=== PATIENT | female | born 1980 | race Caucasian/White ===

== ENCOUNTER 2017-08-26 10:51 | Emergency (ER) | payer BC, MEDICAID, OTHER ==
[2017-08-26 11:00] VITALS: RESP 16; TEMP 97.7
[2017-08-26 11:51] LABS: SQUAMOUS EPITHIAL 4 /hpf (0-5); URINE BILIRUBIN NEGATIVE (NEGATIVE); URINE BLOOD NEGATIVE (NEGATIVE); URINE CLARITY SLIGHTY-CLOUDY (Clear); URINE COLOR YELLOW (YELLOW); URINE GLUCOSE (UA) NEG (Normal); URINE LEUKOCYTE ESTERASE NEG Leu/uL (Negative); URINE NITRATE NEGATIVE (NEGATIVE); URINE PROTEIN NEGATIVE (NEGATIVE); URINE UROBILINOGEN 0.2-1.0 mg/dL (0.2-1.0)
[2017-08-26 12:01] LABS: BASO # 0.1 K/uL (0.0-0.2); BASO % 0.6 % (0.0-2.0); EOS # 0.2 K/uL (0.0-0.7); EOS % 2.6 % (0.0-4.0); HEMOGLOBIN 12.5 g/dL (12.0-16.0); LYMPH # 2.2 K/uL (1.0-4.3); LYMPH % 23.4 % (20.0-40.0); MEAN CELL VOLUME 80.9 fl (81.0-99.0); MEAN CORPUSCULAR HEMOGLOBIN 27.2 pg (27.0-31.0); MEAN CORPUSCULAR HGB CONC 33.6 g/dL (33.0-37.0); MONO # 0.6 K/uL (0.0-0.8); MONO % 6.9 % (0.0-10.0); NEUT # 6.2 K/uL (1.8-7.0); NEUT % 66.5 % (50.0-75.0); RBC 4.6 Mil/uL (3.80-5.20); RED CELL DISTRIBUTION WIDTH 13.3 % (11.5-14.5); WHITE BLOOD COUNT 9.3 K/uL (4.8-10.8)
[2017-08-26 12:07] LABS: ALB/GLOB RATIO 1.3 (1.0-2.1); ALBUMIN 4.2 g/dL (3.5-5.0); ALT/SGPT 35 U/L (9-52); AST/SGOT 21 U/L (14-36); BLOOD UREA NITROGEN 17 mg/dl (7-17); CALCIUM 9.3 mg/dL (8.4-10.2); GFR AFRICAN-AMERICAN > 60; GFR NON-AFRICAN AMERICAN > 60; LIPASE 92 U/L (23-300)
--- NOTE | 2017-08-26 12:10 | RAD ---
HISTORY: chest pain COMPARISON: No prior. TECHNIQUE: Chest PA and lateral FINDINGS: LUNGS: No active pulmonary disease. PLEURA: No significant pleural effusion identified. No pneumothorax apparent. CARDIOVASCULAR: Normal. OSSEOUS STRUCTURES: No significant abnormalities. VISUALIZED UPPER ABDOMEN: Normal. OTHER FINDINGS: None. IMPRESSION: No active disease.
--- NOTE | 2017-08-26 15:06 | ED PDOC ---
HPI: Chest Pain Time Seen by Provider: 08/26/17 11:11 Chief Complaint (Nursing): Chest Pain Chief Complaint (Provider): chest pain History Per: Patient History/Exam Limitations: no limitations Additional Complaint(s): 37yo F in ED for eval of chest pain to left side lasting about 10-20 mins pressure sensation radiating to left arm with mild nausea without vomiting and sweating.PT admits this occurred once in the past about 6 months ago. pt states she has been feeling like this since 2days. negative for epigastric pain and radiation of pain to back, vision changes dizziness MCQUEEN. phmx:HTN Past Medical History Reviewed: Historical Data, Nursing Documentation, Vital Signs Vital Signs: Last Vital Signs Temp 97.7 F 08/26/17 10:58 Pulse 73 08/26/17 11:10 Resp 16 08/26/17 11:10 BP 143/90 08/26/17 11:10 Pulse Ox 100 08/26/17 15:10 - Medical History PMH: HTN, Hypothyroidism - Family History Family History: States: Unknown Family Hx - Immunization History Hx Influenza Vaccination: No Hx Pneumococcal Vaccination: No - Home Medications Home Medications: Ambulatory Orders Medication Instructions Recorded Levothyroxine Sodium [Synthroid] 135 mcg PO DAILY 08/27/14 Tobramycin 0.3% [Tobrex 0.3% Ophth 2 drop OP QID #1 bottle 08/27/14 Soln] - Allergies Allergies/Adverse Reactions: Allergies Allergy/AdvReac Type Severity Reaction Status Date / Time seasonal allergies Allergy Uncoded 08/27/14 08:02 LILLIE Risk Score for UA/NSTEMI - LILLIE Risk Score Age > 64: NO 3 or more CAD Risk Factors: NO Known CAD (Stenosis greater than 50%): NO Aspirin use in past 7 days: NO Severe Angina: NO EKG ST changes greater than 0.5mm: NO Positive Cardiac Marker: NO LILLIE Score: 0 Risk %: 5% Curb-65 Severity Score - CURB-65 Severity Score Confusion: No Bun >19mg/dl (>7mmol/L): No Respiratory Rate greater than/equal to 30: No Systolic BP <90 or Diastolic BP less than/equal 60mmHg: No Age >64: No Curb-65 Score: 0 Percentage 30-day mortality: 0.6% Wells Criteria for PE - Wells Criteria for Pulmonary Embolism Clinical Signs and Symptoms of DVT: No P.E is #1 Diagnosis, or Equally Likely: No Heart Rate >100: No Immobilization at least 3 days;Surgery previous 4 weeks: No Previous, objectively diagnosed PE or DVT: No Hemoptysis: No Malignancy w/treatment within 6 months, or palliative: No Total Score: 0 Review of Systems ROS Statement: Except As Marked, All Systems Reviewed And Found Negative Constitutional: Negative for: Fever, Chills Cardiovascular: Positive for: Chest Pain. Negative for: Palpitations Respiratory: Negative for: Cough, Shortness of Breath Gastrointestinal: Positive for: Nausea. Negative for: Vomiting Neurological: Positive for: Dizziness Physical Exam - Reviewed Nursing Documentation Reviewed: Yes Vital Signs Reviewed: Yes - Physical Exam Appears: Positive for: Well, Non-toxic, No Acute Distress Skin: Positive for: Normal Color, Warm, DRY Eye Exam: Positive for: EOMI, Normal appearance, PERRL Cardiovascular/Chest: Positive for: Regular Rate, Rhythm Respiratory: Positive for: CNT, Normal Breath Sounds Gastrointestinal/Abdominal: Positive for: Normal Exam, Bowel Sounds, Soft. Negative for: Tenderness Neurologic/Psych: Positive for: Alert, Oriented - Laboratory Results Result Diagrams: 08/26/17 11:45 08/26/17 11:45 - ECG O2 Sat by Pulse Oximetry: 100 - Progress ED Course And Treament: impression: CP Laboratory Results - last 72 hr 08/26/17 08/26/17 08/26/17 11:40 11:45 11:45 WBC 9.3 RBC 4.60 Hgb 12.5 Hct 37.2 MCV 80.9 L MCH 27.2 MCHC 33.6 RDW 13.3 Plt Count 170 MPV 10.0 Neut % (Auto) 66.5 Lymph % (Auto) 23.4 Swisher % (Auto) 6.9 Eos % (Auto) 2.6 Baso % (Auto) 0.6 Neut # 6.2 Lymph # 2.2 Swisher # 0.6 Eos # 0.2 Baso # 0.1 Sodium 141 Potassium 4.4 Chloride 103 Carbon Dioxide 27 Anion Gap 15 BUN 17 Creatinine 0.7 Est GFR ( Amer) > 60 Est GFR (Non-Af Amer) > 60 Random Glucose 95 Calcium 9.3 Total Bilirubin 0.4 AST 21 ALT 35 Alkaline Phosphatase 52 Troponin I < 0.0120 Total Protein 7.5 Albumin 4.2 Globulin 3.3 Albumin/Globulin Ratio 1.3 Lipase 92 Urine Color Yellow Urine Clarity Slighty-cloudy Urine pH 6.0 Ur Specific [place] 1.025 Urine Protein Negative Urine Glucose (UA) Neg Urine Ketones Negative Urine Blood Negative Urine Nitrate Negative Urine Bilirubin Negative Urine Urobilinogen 0.2-1.0 Ur Leukocyte Esterase Neg Urine RBC (Auto) 2 Urine Microscopic WBC < 1 Ur Squamous Epith Cells 4 Medical Decision Making Medical Decision Making: ll labs are WNL will do 2nd Trop. PT offered obs-tele admission but declined pt made aware of benefits but states she is unable to stay due to her children. PADMINI Romano made aware of pt will have pt f.u in office tomorrow. PT stable well appearing. Troponin I < 0.0120 ng/mL (0.00-0.120) 08/26/17 15:20 Disposition - Clinical Impression Clinical Impression: Chest pain - Patient ED Disposition Is Patient to be Admitted: No Counseled Patient/Family Regarding: Studies Performed, Diagnosis, Need For Followup - Disposition Disposition: Routine/Home Disposition Time: 16:13 Condition: STABLE Instructions: Chest Pain (ED) Forms: [facility] ([place])
[2017-08-26 16:40] VITALS: BP 129/90; PULSE 79; O2SAT 97
--- NOTE | 2017-08-27 11:09 | CARD ---
APPROVED REPORT EKG Measurement Heart [id number] <Conclusion> Normal sinus rhythm Normal ECG
== END 2017-08-26 16:47 | disposition home or self-care (01) ==
LOC: H.ER 10:51
DX: R07.89 Other chest pain (principal); I10 Essential (primary) hypertension; E03.9 Hypothyroidism, unspecified

== ENCOUNTER 2017-09-20 22:19 | Emergency (ER) | payer MEDICAID ==
[2017-09-20 22:43] VITALS: BP 143/93; PULSE 72; RESP 16; TEMP 98.2; O2SAT 98
[2017-09-20] MEDS ORDERED: Albuterol-Ipratrop 3 mg / 0.5 (3 ml) UD INH STA (23:13)
--- NOTE | 2017-09-20 23:15 | ED PDOC ---
HPI: General Adult Time Seen by Provider: 09/20/17 23:14 Chief Complaint (Nursing): Cough, Cold, Congestion Chief Complaint (Provider): cough/chest tightness History Per: Patient (37 y/o female here with cough associated with chest tightness. States when she takes deep breath feels constriction. Has been diagnosed with flu 1 week prior but states she has new symptoms. Has h/o bronchitis in past and feels this is similar. Ran out of albuterol medication.) Past Medical History Reviewed: Historical Data, Nursing Documentation, Vital Signs Vital Signs: Last Vital Signs Temp 98.2 F 09/20/17 22:42 Pulse 72 09/20/17 22:42 Resp 16 09/20/17 22:42 BP 143/93 H 09/20/17 22:42 Pulse Ox 98 09/20/17 23:15 - Medical History PMH: HTN, Hypothyroidism - Family History Family History: States: Unknown Family Hx - Immunization History Hx Influenza Vaccination: No Hx Pneumococcal Vaccination: No - Home Medications Home Medications: Ambulatory Orders Medication Instructions Recorded Levothyroxine Sodium [Synthroid] 135 mcg PO DAILY 08/27/14 Tobramycin 0.3% [Tobrex 0.3% Ophth 2 drop OP QID #1 bottle 08/27/14 Soln] Albuterol 0.083% [Albuterol 0.083% 2.5 mg IH Q8 PRN #100 neb 09/21/17 Inhal Alma Rosa (2.5 mg/3 ml) UD] predniSONE [predniSONE Tab] 2 tab PO DAILY #10 tab 09/21/17 - Allergies Allergies/Adverse Reactions: Allergies Allergy/AdvReac Type Severity Reaction Status Date / Time No Known Allergies Allergy Verified 09/20/17 23:13 Review of Systems ROS Statement: Except As Marked, All Systems Reviewed And Found Negative Constitutional: Positive for: Fever Respiratory: Positive for: Cough Physical Exam - Reviewed Nursing Documentation Reviewed: Yes Vital Signs Reviewed: Yes - Physical Exam Appears: Positive for: Well, Non-toxic, No Acute Distress Head Exam: Positive for: ATRAUMATIC, NORMAL INSPECTION, NORMOCEPHALIC Skin: Positive for: Normal Color, Warm, DRY Eye Exam: Positive for: EOMI, Normal appearance, PERRL ENT: Positive for: Normal ENT Inspection Neck: Positive for: Normal, Painless ROM Cardiovascular/Chest: Positive for: Regular Rate, Rhythm Respiratory: Positive for: CNT, Normal Breath Sounds Gastrointestinal/Abdominal: Positive for: Normal Exam, Bowel Sounds, Soft Back: Positive for: Normal Inspection Extremity: Positive for: Normal ROM Neurologic/Psych: Positive for: Alert, Oriented - ECG O2 Sat by Pulse Oximetry: 98 - Progress ED Course And Treament: CXR NAD EKG NSR 72BPM; NO ECTOPY NO ACUTE CHANGES DUONEB X 1 DOSE Disposition - Clinical Impression Clinical Impression: Bronchitis - Patient ED Disposition Is Patient to be Admitted: No - Disposition Disposition: Routine/Home Disposition Time: 00:53 Condition: FAIR Prescriptions: Albuterol 0.083% [Albuterol 0.083% Inhal Alma Rosa (2.5 mg/3 ml) UD] 2.5 mg IH Q8 PRN #100 neb PRN Reason: Shortness Of Breath predniSONE [predniSONE Tab] 2 tab PO DAILY #10 tab Instructions: Acute Bronchitis (ED) Forms: [facility] (Citizen [place]), [facility] ED School/Work Excuse
[2017-09-20] MEDS ORDERED: Albuterol-Ipratrop 3 mg / 0.5 (3 ml) UD ONE (23:21)
--- NOTE | 2017-09-21 09:24 | RAD ---
HISTORY: chest pain COMPARISON: Chest radiograph dated 08/26/2017. TECHNIQUE: Chest PA and lateral FINDINGS: LUNGS: No active pulmonary disease. PLEURA: No significant pleural effusion identified. No pneumothorax apparent. CARDIOVASCULAR: Normal. OSSEOUS STRUCTURES: No significant abnormalities. VISUALIZED UPPER ABDOMEN: Normal. OTHER FINDINGS: None. IMPRESSION: No active disease.
--- NOTE | 2017-09-21 11:14 | CARD ---
APPROVED REPORT EKG Measurement Heart [id number] <Conclusion> Normal sinus rhythm Normal ECG
== END 2017-09-21 01:15 | disposition home or self-care (01) ==
LOC: H.ER 22:19
DX: J40 Bronchitis, not specified as acute or chronic (principal); I10 Essential (primary) hypertension; E03.9 Hypothyroidism, unspecified